=== PATIENT | male | born 1980 | race African-American/Black ===

== ENCOUNTER 2018-02-16 18:37 | Emergency (ER) | payer OTHER ==
[~2018-02-16] VITALS: Ht 182.9 cm; Wt 77.1 kg
[2018-02-16 19:37] VITALS: Ht 182.9 cm; Wt 77.1 kg
[2018-02-16] MEDS ORDERED: NORVASC10 MG PO (19:38)
[2018-02-16] MEDS ORDERED: PRINIVIL20 MG PO (19:38)
[2018-02-16] MEDS ORDERED: REMERON15 MG PO (19:39)
[2018-02-16 20:15] LABS: BASOPHILS 0.3 % (0-2); EOSINOPHILS 0.9 % (0-7); HEMATOCRIT 36.8 % (42.0-54.0); HEMOGLOBIN 12.4 g/dL (13.5-17.5); LYMPHOCYTES 43.1 % (15-50); MCH 31.4 pg (26.0-34.0); MCHC 33.7 g/dL (31.0-37.0); MCV 93.2 fL (80.0-100.0); MEAN PLATELET VOLUME 10.7 fL (7.4-10.4); MONOCYTES 5.2 % (2-11); NEUTROPHILS 50.5 % (40-80); PLATELET COUNT 159 10x3/uL (130-400); RBC 3.95 10x6/uL (4.20-6.10); WBC 3.5 10x3/uL (4.8-10.8)
[2018-02-16 20:31] LABS: ALKALINE PHOSPHATASE 57 U/L (46-116); ALT (SGPT) 43 U/L (10-68); BILIRUBIN - TOTAL 0.45 mg/dL (0.2-1.3); CALC OSMOLALITY 283 mosm/kg (275-300); CALCIUM 8.7 mg/dL (8.5-10.1); CARBON DIOXIDE 33.4 mmol/L (21.0-32.0); CHLORIDE - SERUM 104 mmol/L (98-107); CREATININE - SERUM 0.9 mg/dL (0.6-1.3); GLUCOSE 94 mg/dL (74-106); PROTEIN - SERUM 7.4 g/dL (6.4-8.2); SODIUM 143 mmol/L (136-145); UREA NITROGEN 11 mg/dL (7-18); eGFR NON AFRICAN AMERICAN > 90 mL/min (90-120)
[2018-02-16] MEDS ORDERED: ANUSOL-HC25 MG RC (20:58)
[2018-02-16 21:35] VITALS: BP 161/109
== END 2018-02-16 21:37 | disposition home or self-care (01) ==
LOC: D.ER 18:37
PROVIDERS: Family Medicine
DX: K62.5 Hemorrhage of anus and rectum (principal); I10 Essential (primary) hypertension

== ENCOUNTER 2019-03-12 23:45 | Emergency (ER) | payer OTHER ==
[~2019-03-12] VITALS: Ht 182.9 cm; Wt 70.3 kg
[~2019-03-12 23:45] MED LIST: ANUSOL-HC25 MG RC; NORVASC10 MG PO; PRINIVIL20 MG PO; REMERON15 MG PO
[2019-03-12 23:59] VITALS: BP 159/112; Ht 182.9 cm; Wt 70.3 kg
[2019-03-13] MEDS ORDERED: TYLENOL W/CODEI1 TAB PO (00:24)
[2019-03-13] MEDS ORDERED: KEFLEX500 MG PO (00:24)
== END 2019-03-13 02:00 | disposition home or self-care (01) ==
LOC: D.ER 23:45
DX: N49.2 Inflammatory disorders of scrotum (principal)